=== PATIENT | female | born 1980 | race Caucasian/White ===

== ENCOUNTER 2018-03-20 20:17 | Emergency (ER) | payer MEDICAID, SELFPAY ==
[2018-03-20] MEDS ORDERED: Ketorolac Tromethamine 60 MG/2 ML VIAL ONE (20:26)
--- NOTE | 2018-03-20 21:41 | RAD ---
CHEST TWO VIEWS: 03/20/18 Comparison is made with the 02/22/13 study. The heart is normal in size and the lungs are clear. No in filtrate, effusion or pneumothorax was seen. the bony structures appear intact. IMPRESSION: No acute thoracic finding. POS: HOME
--- NOTE | 2018-03-20 21:42 | RAD ---
RIGHT ANKLE THREE VIEWS: 03/20/18 No fracture, dislocation, or acute bony change was seen. A calcaneal spur is present. The ankle morti se is intact. IMPRESSION: No acute bony finding. POS: HOME
== END 2018-03-20 20:48 | disposition home or self-care (01) ==
LOC: EDBD 20:17 → BURERS 20:17
DX: S20.212A Contusion of left front wall of thorax, initial encounter (principal); M25.571 Pain in right ankle and joints of right foot; G89.29 Other chronic pain; G43.909 Migraine, unspecified, not intractable, without status migrainosus; F90.9 Attention-deficit hyperactivity disorder, unspecified type; F17.210 Nicotine dependence, cigarettes, uncomplicated; Y08.89XA Assault by other specified means, initial encounter; Z79.899 Other long term (current) drug therapy
CPT/HCPCS: 71046; 96372; J1885

== ENCOUNTER 2018-04-05 21:22 | Emergency (ER) | payer MEDICAID, SELFPAY ==
[2018-04-05] MEDS ORDERED: Cephalexin 500 MG CAP ONE (21:39)
[2018-04-05] MEDS ORDERED: Sulfameth/Trimethoprim DS 800-160mg TAB ONE (21:40)
== END 2018-04-05 21:45 | disposition home or self-care (01) ==
LOC: BURERS 21:22
DX: L03.116 Cellulitis of left lower limb (principal); G43.909 Migraine, unspecified, not intractable, without status migrainosus; F90.9 Attention-deficit hyperactivity disorder, unspecified type; F17.210 Nicotine dependence, cigarettes, uncomplicated; Z79.899 Other long term (current) drug therapy
CPT/HCPCS: 99282

== ENCOUNTER 2019-06-27 05:22 | Emergency (ER) | payer SELFPAY ==
--- NOTE | 2019-06-27 08:12 | RAD ---
RIGHT SHOULDER 3 VIEWS: Date: 06/27/19 Comparison made with the 11/22/17 study from [facility]. There has been no adverse interval change. No fracture, dislocation, or periarticular calcification s een. The AC joint is normal in width. There are no arthritic changes or other obvious causes for pain . IMPRESSION: No significant findings. POS: HOME
== END 2019-06-27 06:00 | disposition home or self-care (01) ==
LOC: BURERS 05:22
DX: S46.911A Strain of unspecified muscle, fascia and tendon at shoulder and upper arm level, right arm, initial encounter (principal); G43.909 Migraine, unspecified, not intractable, without status migrainosus; F90.9 Attention-deficit hyperactivity disorder, unspecified type; F17.210 Nicotine dependence, cigarettes, uncomplicated; Y04.0XXA Assault by unarmed brawl or fight, initial encounter